=== PATIENT | female | born 1985 | race African-American/Black ===

== ENCOUNTER 2021-04-29 21:51 | Emergency (ER) | payer OTHER ==
[2021-04-29 22:17] LABS: Urine Blood Negative (Negative); Urine Glucose Negative (Negative); Urine Protein Negative (Negative); Urine Specific Gravity 1.025 (1.005-1.030); Urine pH 7.5 (5.0-7.0)
[2021-04-29] MEDS ORDERED: KETOROLAC 30 MG/ML INJ ONE (23:15)
[2021-04-29] MEDS ORDERED: NA CHLORIDE 0.9% 100 ML ONE (23:15)
[2021-04-29] MEDS ORDERED: DIPHENHYDRAMINE 50 MG/ML VIAL ONE (23:15)
[2021-04-29] MEDS ORDERED: METOCLOPRAMIDE 10 MG/2mL INJ ONE (23:15)
[2021-04-29 23:46] LABS: Urine Specific Gravity/Preg 1.025 (1.005-1.030)
[2021-04-29 23:48] LABS: Urine Blood Negative (Negative); Urine Glucose Negative (Negative); Urine Protein Negative (Negative); Urine Specific Gravity 1.025 (1.005-1.030); Urine pH 5.5 (5.0-7.0)
[2021-04-30 00:01] LABS: Absolute Lymphocytes (CBC) 0.7 K/uL (0.7-4.9); Hematocrit 37.4 % (36.0-45.0); Lymphocytes % 15.2 % (15.3-44.8); MPV 8.4 fL (7.6-11.3); RBC Red Blood Cell Count 3.81 M/uL (3.86-4.86)
[2021-04-30 00:07] LABS: ALT/SGPT 170 U/L (12-78); AST/SGOT 56 U/L (15-37); Albumin 4.2 g/dL (3.4-5.0); Alkaline Phosphatase 106 U/L (45-117); BUN Blood Urea Nitrogen 14 mg/dL (7-18); Bicarbonate 29 mmol/L (21-32); Bilirubin Direct 0.2 mg/dL (0-0.2); Bilirubin Total 0.6 mg/dL (0.2-1.0); Glucose Level 134 mg/dL (74-106); Lipase 162 U/L (73-393); Potassium 3.5 mmol/L (3.5-5.1); Protein, Total 8.8 g/dL (6.4-8.2); Sodium Level 139 mmol/L (136-145)
[2021-04-30 00:58] LABS: Urine Bacteria <20 /HPF (<20); Urine RBC NONE SEEN /HPF (NONE SEEN)
--- NOTE | 2021-04-30 01:43 | EDPHYS ---
Physician Documentation [facility] Name: Leatha Jorge Age: 35 yrs Sex: Female : 1985 Arrival Date: 04/29/2021 Time: 21:53 Bed 16 Private MD: ED Physician Aleksandr Ballard HPI: 04/29 22:44 This 35 yrs old Black Female presents to ER via Ambulatory with complaints of Chest pm1 Pain, Abdominal Pain, Blurred Vision, Nausea, High Blood Pressure. 22:44 The patient presents with abdominal pain in the lower abdomen. Onset: The pm1 symptoms/episode began/occurred 3 day(s) ago. The symptoms do not radiate. Associated signs and symptoms: Pertinent positives: chest pain this AM. Headache, Pertinent negatives: nausea, vomiting, and diarrhea, dysuria, fever. Modifying factors: The symptoms are alleviated by nothing, the symptoms are aggravated by nothing. Severity of pain: in the emergency department the pain is unchanged. The patient has not experienced similar symptoms in the past. The patient has been recently seen by a physician: given prescription for metoprolol for her blood pressure. 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 - Social history:: Smoking status: Patient denies any tobacco usage or history of. ROS: 22:44 Skin: Negative for injury, rash, and discoloration. pm1 22:44 Constitutional: Negative for fever, chills, and weight loss, Respiratory: Negative for shortness of breath, cough, wheezing, and pleuritic chest pain, Back: Negative for injury and pain, MS/Extremity: Negative for injury and deformity. 22:44 Abdomen/GI: Positive for abdominal pain, Negative for nausea, vomiting, and diarrhea. 22:44 Neuro: Positive for headache, Negative for numbness, tingling, weakness. 22:44 All other systems are negative. 22:44 Cardiovascular: Positive for chest pain, Negative for edema, orthopnea, palpitations. pm1 Exam: 22:44 Constitutional: This is a well developed, well nourished patient who is awake, alert, pm1 and in no acute distress. Head/Face: Normocephalic, atraumatic. 22:44 Back: No spinal tenderness. No costovertebral tenderness. Full range of motion. Skin: Warm, dry with normal turgor. Normal color with no rashes, no lesions, and no evidence of cellulitis. MS/ Extremity: Pulses equal, no cyanosis. Neurovascular intact. Full, normal range of motion. 22:44 Eyes: Exam is negative for acute changes, Extraocular movements: no acute changes, Conjunctiva: no acute changes, no injection. 22:44 ENT: Exam is negative for acute changes, Mouth: no acute changes, Lips: normal, moist, Oral mucosa: normal, pink and intact, moist. 22:44 Cardiovascular: Exam negative for acute changes, Rate: normal, Rhythm: regular, Pulses: no pulse deficits are appreciated, Heart sounds: normal, normal S1and S2. 22:44 Respiratory: Exam negative for acute changes, respiratory distress, shortness of breath, Breath sounds: are clear throughout. 22:44 Abdomen/GI: Exam negative for acute changes, Inspection: abdomen appears normal, Palpation: abdomen is soft and non-tender, in all quadrants. 22:44 Neuro: Exam negative for acute changes, Orientation: is normal, Mentation: is normal, Motor: is normal, moves all fours. Vital Signs: 22:07 BP 171 / 109; Pulse 81; Resp 16; Temp 98.5(TE); Pulse Ox 100% on R/A; Weight 85.28 kg lp1 (R); Height 5 ft. 10 in. (177.80 cm); Pain 8/10; 22:30 BP 161 / 104; Pulse 79; Resp 19; Pulse Ox 100% on R/A; ll3 23:30 BP 166 / 107; Pulse 79; Resp 17; Pulse Ox 100% on R/A; ll3 04/30 01:03 BP 140 / 81; Pulse 82; Resp 19; Pulse Ox 100% on R/A; ll3 02:07 BP 123 / 92; Pulse 81; Resp 19; Pulse Ox 99% on R/A; ll3 04/29 22:07 Body Mass Index 26.97 (85.28 kg, 177.80 cm) lp1 MDM: 04/29 22:43 Patient medically screened. pm1 22:44 Data reviewed: vital signs. Data interpreted: Pulse oximetry: on room air is 100 %. pm1 Interpretation: normal. Refusal of service: The patient/guardian displays adequate decision making capability and despite a detailed discussion of alternatives, benefits, risks, and consequences refuses: Patient does not want work up for her chest pain because she has been told that it she has chest wall pain. She also does not want a CT head because she attributes the headache to her elevated blood pressure. 04/30 01:35 Counseling: I had a detailed discussion with the patient and/or guardian regarding: the pm1 historical points, exam findings, and any diagnostic results supporting the discharge/admit diagnosis, lab results, radiology results, the need for outpatient follow up, a family practitioner, to return to the emergency department if symptoms worsen or persist or if there are any questions or concerns that arise at home. Special discussion: I discussed with the patient the need to follow-up with the PCP/specialist for the noted incidental finding on X-ray/CT scanning. pulmonary nodules. 04/29 22:16 Order name: Urine Dipstick-Ancillary; Complete Time: 22:32 EDMS 04/29 22:43 Order name: Urine --Ancillary (enter results); Complete Time: 23:49 lp1 04/29 22:46 Order name: Basic Metabolic Panel; Complete Time: 01:01 pm1 04/29 22:46 Order name: CBC with Diff; Complete Time: 01:01 pm1 04/29 22:46 Order name: Hepatic Function; Complete Time: 01:01 pm1 04/29 22:46 Order name: Lipase; Complete Time: 01:01 pm1 04/29 22:46 Order name: Urine Microscopic Only; Complete Time: 01: pm1 04/29 22:46 Order name: CT Abd/Pelvis - IV Contrast Only pm1 04/29 22:50 Order name: COVID-19 SARS RT PCR (Document "Date of Onset" if Symptomatic); Complete pm1 Time: 01:04/29 23:48 Order name: Urine Dipstick-Ancillary; Complete Time: 23:49 EDMS 04/30 01:58 Order name: CREATININE WHOLE BLOOD; Complete Time: 02:02 EDMS 04/29 22:42 Order name: EKG; Complete Time: 22:43 lp1 04/29 22:42 Order name: EKG - Nurse/Tech; Complete Time: 22:42 lp1 04/29 22:46 Order name: IV Saline Lock; Complete Time: 00:22 pm1 04/29 22:46 Order name: Labs collected and sent; Complete Time: 00:22 pm1 Administered Medications: 00:22 Drug: Ketorolac 30 mg Route: IVP; Site: right antecubital; ll3 01:18 Follow up: Response: No adverse reaction ll3 00:22 Drug: Benadryl (diphenhydrAMINE) 25 mg Route: IVP; Site: left antecubital; ll3 01:18 Follow up: Response: No adverse reaction ll3 00:54 Drug: Reglan (metoCLOPramide) 10 mg Route: IVP; Site: right antecubital; ll3 01:18 Follow up: Response: No adverse reaction ll3 Disposition: 02:22 Co-signature as Attending Physician, Aleksandr Ballard MD. [email or web address] Disposition Summary: 04/30/21 01:43 Discharge Ordered Location: Home pm1 Problem: new pm1 Symptoms: have improved pm1 Condition: Stable pm1 Diagnosis - Coronavirus infection, unspecified pm1 - Essential (primary) hypertension pm1 Followup: pm1 - With: Emergency Department - When: As needed - Reason: Worsening of condition Followup: pm1 - With: Private Physician - When: 2 - 3 days - Reason: Recheck today's complaints, Continuance of care, Re-evaluation by your physician Discharge Instructions: - Discharge Summary Sheet pm1 - Hypertension, Adult pm1 - How to Take Your Blood Pressure, [id number] pm1 - DASH Eating Plan pm1 - Managing Your Hypertension pm1 - COVID-19 pm1 - COVID-19 Frequently Asked Questions pm1 - 10 Things You Can Do to Manage Your COVID-19 Symptoms at Home - [facility] [place] pm1 - COVID-19: Quarantine vs. Isolation - [facility] [place] 2] pm1 Forms: - Medication Reconciliation Form pm1 - Thank You Letter pm1 - Antibiotic Education pm1 - Prescription Opioid Use pm1 Signatures: Dispatcher [employer] EDNE Atiya Jessica RN RN 1 Ken Haile NP CARPET FINISHING SUPERVISOR pm1 Aleksandr Ballard MD MD mh7 Nisha Tomas RN RN ll3 Corrections: (The following items were deleted from the chart) 03:30 04/29 22:44 Constitutional: Negative for fever, chills, and weight loss, pm1 Cardiovascular: Negative for chest pain, palpitations, and edema, Respiratory: Negative for shortness of breath, cough, wheezing, and pleuritic chest pain, Back: Negative for injury and pain, MS/Extremity: Negative for injury and deformity, pm1
--- NOTE | 2021-04-30 01:43 | ER ---
Nurse's Notes [facility] Name: Leatha Jorge Age: 35 yrs Sex: Female : 1985 Arrival Date: 04/29/2021 Time: 21:53 Bed 16 Private MD: Diagnosis: Coronavirus infection, unspecified;Essential (primary) hypertension Presentation: 04/29 22:03 Chief complaint: Patient states: Headache, shooting pain in head, reports some chest lp1 pain today, lower abdominal pain x 4 days; Checked BP at work, 200/130. Coronavirus screen: At this time, the client does not indicate any symptoms associated with coronavirus-19. Ebola Screen: No symptoms or risks identified at this time. Risk Assessment: Do you want to hurt yourself or someone else? Patient reports no desire to harm self or others. Note Reports daughter has been running a fever. Onset of symptoms was April 29, 2021. 22:03 Method Of Arrival: Ambulatory lp1 22:03 Acuity: CELESTE 2 lp1 22:07 Initial Sepsis Screen: Does the patient meet any 2 criteria? No. Patient's initial lp1 sepsis screen is negative. Does the patient have a suspected source of infection? No. Patient's initial sepsis screen is negative. 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 - Social history:: Smoking status: Patient denies any tobacco usage or history of. Screenin:07 Abuse screen: Denies threats or abuse. Denies injuries from another. Nutritional lp1 screening: No deficits noted. Tuberculosis screening: No symptoms or risk factors identified. Fall Risk None identified. Assessment: 23:30 General: Appears in no apparent distress. uncomfortable, Behavior is calm, cooperative. ll3 Pain: Complains of pain in abdomen Pain radiates to back Pain currently is 7 out of 10 on a pain scale. Pain began 1 day ago. Is continuous. Neuro: Level of Consciousness is awake, alert, obeys commands, Oriented to person, place, time, situation, Reports headache. Cardiovascular: Patient's skin is warm and dry. Respiratory: Respiratory effort is even, unlabored, Respiratory pattern is regular, symmetrical. GI: Reports lower abdominal pain. : Urine is clear. Derm: Skin is pink, warm \T\ dry. 04/30 00:28 Reassessment: Patient appears in no apparent distress at this time. No changes from ll3 previously documented assessment. Patient and/or family updated on plan of care and expected duration. Pain level reassessed. Patient is alert, oriented x 3, equal unlabored respirations, skin warm/dry/pink. 01:30 Reassessment: Patient appears in no apparent distress at this time. No changes from ll3 previously documented assessment. Patient and/or family updated on plan of care and expected duration. Pain level reassessed. Patient is alert, oriented x 3, equal unlabored respirations, skin warm/dry/pink. Vital Signs: 04/29 22:07 BP 171 / 109; Pulse 81; Resp 16; Temp 98.5(TE); Pulse Ox 100% on R/A; Weight 85.28 kg lp1 (R); Height 5 ft. 10 in. (177.80 cm); Pain 8/10; 22:30 BP 161 / 104; Pulse 79; Resp 19; Pulse Ox 100% on R/A; ll3 23:30 BP 166 / 107; Pulse 79; Resp 17; Pulse Ox 100% on R/A; ll3 04/30 01:03 BP 140 / 81; Pulse 82; Resp 19; Pulse Ox 100% on R/A; ll3 02:07 BP 123 / 92; Pulse 81; Resp 19; Pulse Ox 99% on R/A; ll3 04/29 22:07 Body Mass Index 26.97 (85.28 kg, 177.80 cm) lp1 ED Course: 04/29 21:53 Patient arrived in ED. [email or web address] 22:03 Arm band placed on right wrist. lp1 22:06 Triage completed. lp1 22:09 Patient maintains SpO2 saturation greater than 95% on room air. lp1 22:26 Ken Haile NP is PHCP. pm1 22:26 Aleksandr Ballard MD is Attending Physician. pm1 04/30 00:01 Missed attempt(s): 22 gauge in left antecubital area. Bleeding controlled, band aid ll3 applied, catheter tip intact. 00:01 Missed attempt(s): 22 gauge in right antecubital area. Bleeding controlled, band aid ll3 applied, catheter tip intact. 00:17 Missed attempt(s): 20 gauge in right antecubital area. Bleeding controlled, band aid bb applied, catheter tip intact. Inserted saline lock: 20 gauge in right antecubital area, using aseptic technique. 00:22 Nisha Tomas RN is Primary Nurse. ll3 00:28 No provider procedures requiring assistance completed. ll3 00:29 Patient has correct armband on for positive identification. Placed in gown. Bed in low ll3 position. Call light in reach. Side rails up X 1. coding technician on. Pulse ox on. NIBP on. 00:47 CT Abd/Pelvis - IV Contrast Only In Process Unspecified. EDMS 02:07 IV discontinued, intact, bleeding controlled, No redness/swelling at site. Pressure ll3 dressing applied. Administered Medications: 00:22 Drug: Ketorolac 30 mg Route: IVP; Site: right antecubital; ll3 01:18 Follow up: Response: No adverse reaction ll3 00:22 Drug: Benadryl (diphenhydrAMINE) 25 mg Route: IVP; Site: left antecubital; ll3 01:18 Follow up: Response: No adverse reaction ll3 00:54 Drug: Reglan (metoCLOPramide) 10 mg Route: IVP; Site: right antecubital; ll3 01:18 Follow up: Response: No adverse reaction ll3 Outcome: 01:43 Discharge ordered by . pm1 02:07 Discharged to home ambulatory. ll3 02:07 Condition: stable 02:07 Discharge instructions given to patient, Instructed on discharge instructions, follow up and referral plans. Demonstrated understanding of instructions, follow-up care. 02:08 Patient left the ED. ll3 Signatures: Dispatcher [employer] EDMS Magui Kolb RN RN bb Pena, Laura, RN RN lp1 Ken Haile, PATIENT COMPANION PATIENT COMPANION pm1 Nisha Tomas RN RN ll3 Herlinda [email or web address] Corrections: (The following items were deleted from the chart) 04/29 22:09 22:03 Chief complaint: Patient states: Headache, shooting pain in head, reports some lp1 chest pain, lower abdominal pain; Checked BP at work, 200/130 lp1 : 22:03 Acuity: CELESTE 3 lp1 lp1 04/30 00: 00:23 General: Appears in no apparent distress. uncomfortable, Behavior is calm, ll3 cooperative, ll3 : 00:23 Pain: Complains of pain in abdomen Pain radiates to back Pain currently is 7 out ll3 of 10 on a pain scale. Pain began 1 day ago. Is continuous, ll3 : 00:23 Neuro: Level of Consciousness is awake, alert, obeys commands, Oriented to ll3 person, place, time, situation, Reports headache ll3 : 00:23 Cardiovascular: Patient's skin is warm and dry. ll3 ll3 : 00:23 Respiratory: Respiratory effort is even, unlabored, Respiratory pattern is ll3 regular, symmetrical, ll3 : 00:23 GI: Reports lower abdominal pain, ll3 ll3 : 00:23 : Urine is clear, ll3 ll3 : 00:23 Derm: Skin is pink, warm \T\ dry. ll3 ll3
[2021-04-30 02:16] VITALS: TEMP 98.5
[2021-04-30 02:23] VITALS: BP 123/92; O2SAT 99
--- NOTE | 2021-04-30 12:52 | RAD REPORT ---
EXAM DESCRIPTION: CT Abdomen and Pelvis With Intravenous Contrast CLINICAL HISTORY: ABD PAIN TECHNIQUE: Axial computed tomography images of the abdomen and pelvis with intravenous contrast. S agittal and coronal reformatted images were created and reviewed. This CT exam was performed using one or more of the following dose reduction techniques: automated exposure control, adjustment of t he mA and/or kV according to patient size, and/or use of iterative reconstruction technique. COMPARISON: No relevant prior studies available. FINDINGS: Lung bases: Multiple nodules with groundglass halos in the lungs bilaterally. An index l eft lower lobe nodule measures 11 mm (series 401 image 9). ABDOMEN: Liver: Unremarkable. No mass. Gallbladder and bile ducts: The gallbladder is contracted. No calcified stones. No ductal dilat ion. Pancreas: Unremarkable. No mass. No ductal dilation. Spleen: Unremarkable. No splenomegaly. Adrenals: Unremarkable. No mass. Kidneys and ureters: Unremarkable. No solid mass. No hydronephrosis. Stomach and bowel: Moderate stool. No bowel obstruction. No appreciable mucosal thickening. PELVIS: Appendix: Normal caliber appendix. No findings to suggest acute appendicitis. Bladder: Mild circumferential urinary bladder wall thickening. Reproductive: There is a 2.3 x 1.5 x 2.1 cm left ovarian cyst. The uterus and right ovary are unrem arkable as visualized. ABDOMEN and PELVIS: Intraperitoneal space: Small amount of free fluid within the pelvis. No free air. Bones/joints: Mild multilevel spondylosis. No acute fracture. No dislocation. Soft tissues: Unremarkable. Vasculature: Unremarkable. No abdominal aortic aneurysm. Lymph nodes: Unremarkable. No enlarged lymph nodes. IMPRESSION: 1. Moderate stool. No bowel obstruction. 2. Mild circumferential urinary bladder wall thickening. Please correlate clinically for cystitis. 3. 2.3 cm left ovarian cyst. No follow-up imaging is recommended. Reference: JACR 2019;17(2):97 4-254 4. Multiple pulmonary nodules bilaterally. These may be infectious or inflammatory in etiology. Fol low-up is recommended in order to exclude underlying malignancy. 5. Other findings as above. Electronically signed by: Que Arboleda MD 04/30/2021 1:10 AM HEEL SPLITTER Due to temporary technical issues with the PACS/Fluency reporting system, reports are being signed by the in house radiologists without review as a courtesy to insure prompt reporting. The interpreting radiologist is fully responsible for the content of the report.
== END 2021-04-30 02:08 | disposition home or self-care (01) ==
LOC: ER 21:51
DX: U07.1 COVID-19 (principal); I10 Essential (primary) hypertension
CPT/HCPCS: 93005; 85025; 80048; 36415; 81025; 82565; 80076; 83690; 74177; 99285; U0003; Q9967; J2765; J1200; 81003; 81015

== ENCOUNTER 2023-02-06 13:21 | Emergency (ER) | payer OTHER ==
--- OUTSIDE RECORDS SUMMARY | 2023-02-06 13:25 | XMS REPORT | Continuity of Care Document ---
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 [id number] Mari 14:45:00 14:45:00 COLLEEN Seyb old 2022-03-19 2022-03-20 Emergency [facility] ERT [id number] Univers 21:10:00 01:47:00 WILY arellano [facility] 2022-03-19 2022-03-20 Emergency [facility] [id number] Univers 21:10:00 01:47:00 Wily Rodriguez [place] 350.1.13.10 ity [facility] 4.2.7.2.686 [facility] [id number] [address] 2022-03-04 2022-03-04 Outpatient MARI RENO [id number] Mari 00:00:00 00:00:00 Seybol d 2022-02-20 2022-02-20 Outpatient PREZASMARI [id number] Mari 13:30:00 13:30:00 PHILLY Seybol d 2022-02-07 2022-02-07 Outpatient PREZASMARI [id number] Mari 00:00:00 00:00:00 PHILLY Seybol d 2022-02-04 2022-02-04 Outpatient COLTMARI MAHARAJ [id number] Mari 15:30:00 15:30:00 JORGE Seybol d 2022-01-31 2022-01-31 Outpatient MARI GREGORY [id number] Mari 15:00:00 15:00:00 JORGE Seybol d 2022-01-31 2022-01-31 Outpatient MARI RENO [id number] Mari 14:55:00 14:55:00 Seybol d 2022-01-30 2022-01-30 Outpatient COLT, MARI RENO [id number] Mari 00:00:00 00:00:00 JORGE Seybol d 2022-01-28 2022-01-28 Outpatient COLT, MARI RENO [id number] Mari 15:30:00 15:30:00 JORGE Seybol d 2022-01-23 2022-01-23 Outpatient PREZAS, MARI RENO [id number] Mari 00:00:00 00:00:00 PHILLY Seybol d 2022-01-20 2022-01-20 Outpatient PREZAS, MARI RENO [id number] Mari 00:00:00 00:00:00 PHILLY Seybol d 2022-01-18 2022-01-18 Outpatient LAB90 MARI RENO [id number] Mari 12:10:00 12:10:00 Seybol d 2022-01-18 2022-01-18 Outpatient PREZAS, MARI RENO [id number] Mari 00:00:00 00:00:00 PHILLY Seybol d 2022-01-18 2022-01-18 Outpatient PREZAS, MARI RENO [id number] Mari 00:00:00 00:00:00 PHILLY Seybol d 2022-01-16 2022-01-16 Outpatient PREZAS, MARI RENO [id number] Mari 00:00:00 00:00:00 PHILLY Seybol d 2022-01-16 2022-01-16 Outpatient PREZAS, MARI RENO [id number] Mari 00:00:00 00:00:00 PHILLY Seybol d 2022-01-11 2022-01-11 Outpatient PREZAS, MARI RENO [id number] Mari 14:45:00 14:45:00 PHILLY Seybol d 2022-01-07 2022-01-07 Outpatient COLT, MARI RENO [id number] Mari 13:00:00 13:00:00 JORGE Seybol d 2022-01-06 2022-01-06 Emergency [place], [facility] [id number] [place] 00:00:00 00:00:00 NEERU [address] 2022-01-04 2022-01-04 Outpatient MARI MIRAMONTES [id number] Mari 00:00:00 00:00:00 PHILLY Seybol d 2021-12-28 2021-12-28 Outpatient JUAN RAMON LIGHT [id number] Mari 14:00:00 14:00:00 Seybol d 2021-12-28 2021-12-28 Outpatient MAHAJAN, MARI RENO [id number] Mari 00:00:00 00:00:00 LEIGH ANN Seybol d 2021-12-28 2021-12-28 Outpatient PREMARI LIVINGSTON [id number] Mari 00:00:00 00:00:00 PHILLY Seybol d 2021-12-28 2021-12-28 Outpatient MARI ROSE [id number] Mari 00:00:00 00:00:00 GIOVANNI Seybol d 2021-12-24 2021-12-24 Outpatient PREMARI LIV[place] [id number] Mari 00:00:00 00:00:00 PHILLY Seybol d 2021-12-21 2021-12-21 Outpatient PREMARI LIV[place]ON [id number] Mari 00:00:00 00:00:00 PHILLY Seybol d 2021-12-19 2021-12-19 Outpatient PREZASMARI [id number] Mari 15:30:00 15:30:00 PHILLY Seybol d 2021-10-18 2021-10-18 Office PAUL STANLEY 1.2.840.114 [id number] Mari 14:45:00 14:45:00 Visit [facility] 350.1.13.13 ybold 1.2.7.2.686 [id number] 2021-10-18 2021-10-18 Outpatient MARI MIRAMONTES [id number] Mari 00:00:00 00:00:00 PHILLY Seybol d 2021-10-12 2021-10-12 Office PREZAS, [place] 1.2.840.114 [id number] Mari 16:30:00 16:30:00 Visit PHILLY Dowell 350.1.13.13 Se ybold 1.2.7.2.686 [id number] 2021-10-12 2021-10-12 Office Hcw39, [facility] [id number] [id number] Mari 15:30:00 16:00:00 Visit [place] 350.1.13.13 Se ybold 1.2.7.2.686 [id number] 2021-10-12 2021-10-12 Outpatient MARI RENO [id number] Mari 15:50:00 15:50:00 Seybol d 2021-10-12 2021-10-12 Outpatient HCW39, MARI RENO [id number] Mari 14:30:00 14:30:00 Seybol d 2021-10-12 2021-10-12 Outpatient PREZAS, MARI RENO [id number] Mari 00:00:00 00:00:00 PHILLY Seybol d 2021-10-12 2021-10-12 Outpatient PREZAS, MARI RENO [id number] Mari 00:00:00 00:00:00 PHILLY Seybol d 2021-10-12 2021-10-12 Outpatient PREZAS, MARI RENO [id number] Mari 00:00:00 00:00:00 PHILLY Seybol d 2021-08-03 2021-08-03 Outpatient PREZASMARI [id number] Mari 16:15:00 16:15:00 PHILLY Seybol d 2021-08-03 2021-08-03 Outpatient PREZASMARI [id number] Mari 00:00:00 00:00:00 PHILLY Seybol d 2021-08-03 2021-08-03 Outpatient PREZASMARI [id number] Mari 00:00:00 00:00:00 PHILLY Seybol d 2021-07-26 2021-07-26 Outpatient PREZALazara MARI RENO [id number] Mari 16:15:00 16:15:00 PHILLY Seybol d 2021-07-20 2021-07-20 Outpatient OKORADOT, MARI RENO [id number] Mari 15:45:00 15:45:00 KERRY Seybol d 2021-07-19 2021-07-19 Outpatient OKORADOT, MARI RENO [id number] Mari 15:30:00 15:30:00 KERRY Seybol d 2021-07-19 2021-07-19 Office Juan Ramon Miramontes 1.2.840.114 [id number] Mari 15:15:00 15:30:00 Visit Philly Delmer 350.1.13.13 Se [place] 1.2.7.2.686 [id number] 2021-07-18 2021-07-18 Emergency X [facility] ERT [id number] Univers 01:18:00 04:48:00 [facility] 2021-07-18 Emergency [facility] [id number] Univers 01:18:00 04:48:00 Anna [facility].13.10 [facility] 4.2.7.2.686 [facility] [id number] [address] 2021-06-19 2021-06-19 Outpatient TESTING, QUANG RENO [id number] Mari 11:25:00 11:25:00 Seybol d 2021-06-05 2021-06-05 Outpatient TESTING, QUANG RENO [id number] Mari 11:25:00 11:25:00 Seybol d 2021-05-22 2021-05-22 Outpatient TESTING, QUANG RENO [id number] Mari 11:25:00 11:25:00 Seybol d 2021-05-18 2021-05-18 Outpatient OKORADOT, MARI RENO [id number] Mari 00:00:00 00:00:00 KERRY Seybol d 2021-05-09 2021-05-09 Outpatient OKORAFOR, MARI RENO [id number] Mari 09:00:00 09:00:00 KERRY Seybol d 2021-05-09 2021-05-09 Outpatient LAB90 MARI RENO [id number] Mari 09:00:00 09:00:00 Seybol d 2021-05-08 2021-05-08 Outpatient TESTING, QUANG RENO [id number] Mari 11:25:00 11:25:00 Seybol d 2021-05-04 2021-05-04 Outpatient OKORAFOR, MARI RENO [id number] Mari 00:00:00 00:00:00 KERRY Seybol d 2021-05-01 2021-05-01 Telemedici Alexander, ASHLEY 1.2.840.114 [id number] Mari 14:00:00 14:10:03 ne Kerry [place] 350.1.13.13 Seybold 1.2.7.2.686 [id number] 2021-05-01 2021-05-01 Outpatient OKORAFOR, MARI RENO [id number] Mari 13:45:00 13:45:00 KERRY Seybol d 2021-04-24 2021-04-24 Outpatient TESTING, QUANG RENO [id number] Mari 11:25:00 11:25:00 Seybol d 2021-04-10 2021-04-10 Outpatient TESTING, QUANG RENO [id number] Mari 11:25:00 11:25:00 Seybol d 2021-03-27 2021-03-27 Outpatient TESTING, QUANG RENO [id number] Mari 11:25:00 11:25:00 Seybol d 2021-03-13 2021-03-13 Outpatient TESTING, QUANG RENO [id number] Mari 11:25:00 11:25:00 Seybol d 2021-02-27 2021-02-27 Outpatient TESTING, QUANG RENO [id number] Mari 11:25:00 11:25:00 Seybol d 2021-02-27 2021-02-27 Outpatient ROSE, MARI RENO [id number] Mari 00:00:00 00:00:00 GIOVANNI Seybol d 2021-02-16 2021-02-16 Outpatient MILTON MARI RENO [id number] Mari 00:00:00 00:00:00 GIOVANNI Seybol d 2021-02-16 2021-02-16 Outpatient MILTON MARI RENO [id number] Mari 00:00:00 00:00:00 GIOVANNI Seybol d 2021-02-07 2021-02-07 Outpatient JUAN RAMON LIGHT MARI RENO [id number] Mari 13:30:00 13:30:00 Seybol d 2021-02-07 2021-02-07 Outpatient MILTON MARI RENO [id number] Mari 00:00:00 00:00:00 GIOVANNI Seybol d 2021-02-06 2021-02-06 Outpatient MILTON MARI RENO [id number] Mari 00:00:00 00:00:00 GIOVANNI Seybol d Results Test Description Test Time Test Comments Results Result Comments Source [facility] 2022-03-20 04:48:47 Test Item Value Reference Range Interpretation Comme nts BETA HCG (test code = See_Comment [Auto mated message] The [id number]) system which ge nerated this result transmit evelyn reference range : Non- fe male and male patients: <5 mIU/mL. The reference r carrington was not used to interpr et this result as rory l/abnormal. ISABEL (test code = ISABEL) Gestational Age ?Range (mIU/mL) 1-10 ?Weeks ?27-96556498-17 Weeks ?00223-01347998-08 Weeks ?9113-21568594-00 Weeks ?3464-075574 Biotin has been reported to cause a negative bias, interpret results relative to patient's use of biotin. [facility] [id number] 04:07:46 Test Item Value Reference Interpretation Comments Range TROPONIN I (test 0.002 ng/mL See_Comment [Automated code = 1187957190) message] The system which generated this result transmitted reference range : <=0.034. The reference range was not used to interpret this result as normal/abnormal . ISABEL (test code = Reference (Normal) ISABEL) Range (defined by the 99th percentile reference limit): <= 0.034 ng/mL Note: Cardiac troponin begins to rise 3-4 hours after the onset of ischemia. Repeat in 4-6 hours if the sample was drawn within 3-4 hours of the onset of the symptom and found normal. Diagnosis of myocardial injury is made with acute changes in cTn concentrations with at least one serial sample above the 99th percentile upper reference limit (URL), taken together with the patient's clinical presentation. Biotin has been reported to cause a negative bias, interpret results relative to patient's use of biotin. Lab Interpretation Normal (test code = 80457-4) [id number] 04:04:26 Test Item Value Reference Range Interpretation Comments NT-proBNP (test code 53 pg/mL See_Comment [Autom ated = 7921264662) message] The system which generated this result transmitted reference range : <=125. The reference range was not used to interpret this result as normal/abnormal . ISABEL (test code = ISABEL) Biotin has been reported to cause a negative bias, interpret results relative to patient's use of biotin. Lab Interpretation Normal (test code = 78387-2) [facility] ([id number][facility]2022-[facility]-20 03:55:25 Test Item Value Reference Range Interpretation Comments NA (test code = 138 mmol/L 135-145 5406737173) K (test code = 3.9 mmol/L 3.5-5.0 5643436468) CL (test code = 104 mmol/L 98-108 1968853352) CO2 TOTAL (test code = 26 mmol/L 23-31 4963131000) AGAP (test code = 2-16 4319779660) BUN (test code = 13 mg/dL 7-23 1083285712) GLUCOSE (test code = 186 mg/dL 70-110 H 4980847032) CREATININE (test code = 0.59 mg/dL 0.50-1.04 8693650843) TOTAL BILI (test code = 0.4 mg/dL 0.1-1.0 0886785057) CALCIUM (test code = 8.8 mg/dL 8.6-10.6 4459571338) T PROTEIN (test code = 7.0 g/dL 6.3-8.2 0391223028) ALBUMIN (test code = 4.2 g/dL 3.5-5.0 4459085034) ALK PHOS (test code = 109 U/L 34-122 0453541576) ALTv (test code = 18 U/L 5-35 1742-6) AST(SGOT) (test code = 19 U/L 13-40 2073518951) eGFR (test code = mL/min/1.73m2 8877136936) ISABEL (test code = ISABEL) Association of Glomerular Filtration Rate (GFR) and Staging of Kidney Disease* + --+ --+ ------+| GFR (mL/min/1.73 m2) ?| With Kidney Damage ?| ?Without Kidney Damage+ --------+ --------+ +| ?>90 ?| ?Stage one ?| ? Normal ?+ ---+ ---+ -------+| ?60-89 ?| ?Stage two ?| ? Decreased GFR ? + --+ --+ ------+| ?30-59 ?| ?Stage three ?| ? Stage three ? + --+ --+ ------+| ?15-29 ?| ?Stage four ? | ? Stage four ?+ ---+ ---+ -------+| ?<15 (or dialysis) ? ?| ?Stage five ? | ? Stage five ?+ ---+ ---+ -------+ *Each stage assumes the associated GFR level has been in effect for at least three months. ?Stages 1 to 5, with or without kidney disease, indicate chronic kidney disease. Notes: Determination of stages one and two (with eGFR >59mL/min/1.73 m2) requires estimation of kidney damage for at least three months as defined by structural or functional abnormalities of the kidney, manifested by either:Pathological abnormalities or Markers of kidney damage (including abnormalities in the composition of the blood or urine or abnormalities in imaging tests). Lab Interpretation Abnormal (test code = 26910-9) [facility] 03:55:25 Test Item Value Reference Range Interpretation Comments LIPASE (test code = 8904236593) 151 U/L 0-220 Lab Interpretation (test code = Normal 66064-5) [facility] WITH [id number] 03:46:22 Test Item Value Reference Range Interpretation Comments WBC (test code = See_Comment [Automated 6690-2) message] The sy stem which generated this result transmitted reference range : 4.30 - 11.10 10*3/?L. The reference range was not used to interpret this result as normal/abnormal . RBC (test code = See_Comment L [Automated 789-8) message] The sy stem which generated this result transmitted reference range : 3.93 - 5.25 10*6/?L. The reference range was not used to interpret this result as normal/abnormal . HGB (test code = 11.3 g/dL 11.6-15.0 L 718-7) HCT (test code = 33.6 % 35.7-45.2 L 4544-3) MCV (test code = 98.0 fL 80.6-95.5 H 787-2) MCH (test code = 32.9 pg 25.9-32.8 H 785-6) MCHC (test code = 33.6 g/dL 31.6-35.1 786-4) RDW-SD (test code = 44.2 fL 39.0-49.9 85589-0) RDW-CV (test code = 12.3 % 12.0-15.5 788-0) PLT (test code = See_Comment [Automated 777-3) message] The sy stem which generated this result transmitted reference range : 166 - 358 10*3/ ?L. The reference r carrington was not used to interpret this result as normal/abnormal . MPV (test code = 9.7 fL 9.5-12.9 38244-4) NRBC/100 WBC (test See_Comment [Automat ed code = 8549795606) message] The system which generated this result transmitted reference range : 0.0 - 10.0 /100 WBCs. The refer ence range was not u sed to interpret th is result as normal/abnormal . NRBC x10^3 (test code See_Comment [Auto mated = 4023925538) message] The s ystem which generated this result transmitted reference range : 10*3/?L. The reference range was not used to interpret this result as normal/abnormal . GRAN MAT (NEUT) % 55.3 % (test code = 770-8) IMM GRAN % (test code 0.30 % = 2363028529) LYMPH % (test code = 34.5 % 736-9) MONO % (test code = 7.9 % 5905-5) EOS % (test code = 1.2 % 713-8) BASO % (test code = 0.8 % 706-2) GRAN MAT x10^3(ANC) 3.35 10*3/uL 1.88-7.09 (test code = 9521466113) IMM GRAN x10^3 (test 0.00-0.06 code = 3303025340) LYMPH x10^3 (test code 2.09 10*3/uL 1.32-3.29 = 731-0) MONO x10^3 (test code 0.48 10*3/uL 0.33-0.92 = 742-7) EOS x10^3 (test code = 0.07 10*3/uL 0.03-0.39 711-2) BASO x10^3 (test code 0.05 10*3/uL 0.01-0.07 = 704-7) Lab Interpretation Abnormal (test code = 39279-3) [facility] [id number] 03:27:00 Test Item Value Reference Range Interpretation Comments POCT PREG (test code = 1605) positive On board controls acceptable with positive C Line (test code = 3574) POCT PREG LOT # (test code = 3575) [id number] POCT PREG TEST DATE (test 06/29/2023 code = 3576) Lab Interpretation (test code = Normal 41455-4) [facility] [id number] 07:15:33 Test Item Value Reference Interpretation Comments Range TROPONIN I (test 0.003 ng/mL See_Comment [Automated code = 8665361141) message] The system which generated this result transmitted reference range : <=0.034. The reference range was not used to interpret this result as normal/abnormal . ISABEL (test code = Reference (Normal) ISABEL) Range (defined by the 99th percentile reference limit): <= 0.034 ng/mL Note: Cardiac troponin begins to rise 3-4 hours after the onset of ischemia. Repeat in 4-6 hours if the sample was drawn within 3-4 hours of the onset of the symptom and found normal. Diagnosis of myocardial injury is made with acute changes in cTn concentrations with at least one serial sample above the 99th percentile upper reference limit (URL), taken together with the patient's clinical presentation. Biotin has been reported to cause a negative bias, interpret results relative to patient's use of biotin. Lab Interpretation Normal (test code = 13967-6) [facility]. METABOLIC PANEL ([id number])2021-07-18 07:04:35 Test Item Value Reference Range Interpretation Comments NA (test code = 141 mmol/L 135-145 8502000291) K (test code = 4.0 mmol/L 3.5-5.0 3174595717) CL (test code = 101 mmol/L 98-108 9059660519) CO2 TOTAL (test code = 30 mmol/L 23-31 0057713819) AGAP (test code = 2-16 1349286476) BUN (test code = 14 mg/dL 7-23 2986961836) GLUCOSE (test code = 146 mg/dL 70-110 H 2285084913) CREATININE (test code = 0.62 mg/dL 0.50-1.04 2229995066) TOTAL BILI (test code = 0.9 mg/dL 0.1-1.3 0733783788) CALCIUM (test code = 9.1 mg/dL 8.6-10.6 3943264091) T PROTEIN (test code = 7.8 g/dL 6.3-8.2 2691091234) ALBUMIN (test code = 4.7 g/dL 3.5-5.0 5806431389) ALK PHOS (test code = 110 U/L 34-122 8620824514) ALTv (test code = 18 U/L 5-35 1742-6) AST(SGOT) (test code = 29 U/L 13-40 6535368598) eGFR (test code = mL/min/1.73m2 0792023427) ISABEL (test code = ISABEL) Association of Glomerular Filtration Rate (GFR) and Staging of Kidney Disease* + --+ --+ ------+| GFR (mL/min/1.73 m2) ?| With Kidney Damage ?| ?Without Kidney Damage+ --------+ --------+ +| ?>90 ?| ?Stage one ?| ? Normal ?+ ---+ ---+ -------+| ?60-89 ?| ?Stage two ?| ? Decreased GFR ? + --+ --+ ------+| ?30-59 ?| ?Stage three ?| ? Stage three ? + --+ --+ ------+| ?15-29 ?| ?Stage four ? | ? Stage four ?+ ---+ ---+ -------+| ?<15 (or dialysis) ? ?| ?Stage five ? | ? Stage five ?+ ---+ ---+ -------+ *Each stage assumes the associated GFR level has been in effect for at least three months. ?Stages 1 to 5, with or without kidney disease, indicate chronic kidney disease. Notes: Determination of stages one and two (with eGFR >59mL/min/1.73 m2) requires estimation of kidney damage for at least three months as defined by structural or functional abnormalities of the kidney, manifested by either:Pathological abnormalities or Markers of kidney damage (including abnormalities in the composition of the blood or urine or abnormalities in imaging tests). Lab Interpretation Abnormal (test code = 39473-5) [facility], [id number] 07:03:54 Test Item Value Reference Range Interpretation Comments LIPASE (test code = 3081103474) 102 U/L 0-220 Lab Interpretation (test code = Normal 03685-9) [facility]2022-[facility]-20 07:02:14 Test Item Value Reference Range Interpretation Comments APTT Patient (test See_Comment [Automat ed code = 3173-2) message] The system which generated this result transmitted reference range : 23 - 38 Seconds . The reference range was not used to interpr et this result as normal/abnormal . ISABEL (test code = ISABEL) The [facility] patient population mean normal value for aPTT is 30 seconds. Lab Interpretation Normal (test code = 94183-8) [facility] TylerPROTHROMBIN [facility] / [id number] 07:00:13 Test Item Value Reference Range Interpretation Comments PROTIME PATIENT (test See_Comment [Auto mated message] code = 5964-2) The system wh ich generated this result transmitted ref erence range: 12.0 - 1 4.7 Seconds. The re ference range was not u sed to interpret this result as normal/abnor mal. INR (test code = 6301-6) Nor mal INR <1.1; Warfarin Therap eutic range 2.0 to 3. 0 or 2.5 to 3.5, dep ending upon the indica tions. Lab Interpretation (test Normal code = 59370-8) [facility] WITH [id number] 06:51:31 Test Item Value Reference Range Interpretation Comments WBC (test code = See_Comment [Automated 1590-2) message] The sy stem which generated this result transmitted reference range : 4.30 - 11.10 10*3/?L. The reference range was not used to interpret this result as normal/abnormal . RBC (test code = See_Comment L [Automated 789-8) message] The sy stem which generated this result transmitted reference range : 3.93 - 5.25 10*6/?L. The reference range was not used to interpret this result as normal/abnormal . HGB (test code = 13.0 g/dL 11.6-15.0 718-7) HCT (test code = 39.1 % 35.7-45.2 4544-3) MCV (test code = 100.0 fL 80.6-95.5 H 787-2) MCH (test code = 33.2 pg 25.9-32.8 H 785-6) MCHC (test code = 33.2 g/dL 31.6-35.1 786-4) RDW-SD (test code = 43.7 fL 39.0-49.9 61668-1) RDW-CV (test code = 12.0 % 12.0-15.5 788-0) PLT (test code = See_Comment [Automated 777-3) message] The sy stem which generated this result transmitted reference range : 166 - 358 10*3/ ?L. The reference r carrington was not used to interpret this result as normal/abnormal . MPV (test code = 9.8 fL 9.5-12.9 67949-8) NRBC/100 WBC (test See_Comment [Automat ed code = 6569466051) message] The system which generated this result transmitted reference range : 0.0 - 10.0 /100 WBCs. The refer ence range was not u sed to interpret th is result as normal/abnormal . NRBC x10^3 (test code <0.01 See_Comment [Auto mated = 7299257424) message] The s ystem which generated this result transmitted reference range : 10*3/?L. The reference range was not used to interpret this result as normal/abnormal . GRAN MAT (NEUT) % 55.3 % (test code = 770-8) IMM GRAN % (test code 0.20 % = 6532357166) LYMPH % (test code = 35.1 % 736-9) MONO % (test code = 7.1 % 5905-5) EOS % (test code = 1.3 % 713-8) BASO % (test code = 1.0 % 706-2) GRAN MAT x10^3(ANC) 2.65 10*3/uL 1.88-7.09 (test code = 7410932744) IMM GRAN x10^3 (test <0.03 0.00-0.06 code = 7146018007) LYMPH x10^3 (test code 1.68 10*3/uL 1.32-3.29 = 731-0) MONO x10^3 (test code 0.34 10*3/uL 0.33-0.92 = 742-7) EOS x10^3 (test code = 0.06 10*3/uL 0.03-0.39 711-2) BASO x10^3 (test code 0.05 10*3/uL 0.01-0.07 = 704-7) Lab Interpretation Abnormal (test code = 38523-4) [facility] [id number] 06:43:00 Test Item Value Reference Range Interpretation Comments POCT PREG (test code = 1605) negative On board controls acceptable with present C Line (test code = 3574) POCT PREG LOT # (test code = 3575) [id number] POCT PREG TEST DATE (test code = 3576) Lab Interpretation (test code = Normal 02296-0) [facility] [place]"
[2023-02-06 14:47] LABS: Absolute Lymphocytes (CBC) 1.8 K/uL (0.7-4.9); Lymphocytes % 34.4 % (15.3-44.8); MCV 97.8 fL (80-100); MPV 7.6 fL (7.6-11.3); Platelets 280 thou/uL (152-406); RBC Red Blood Cell Count 3.78 M/uL (3.86-4.86)
[2023-02-06 15:04] LABS: ALT/SGPT 27 U/L (13-56); AST/SGOT 14 U/L (15-37); Alkaline Phosphatase 77 U/L (45-117); BUN Blood Urea Nitrogen 20 mg/dL (7-18); Bicarbonate 26 mEq/L (21-32); Bilirubin Direct 0.3 mg/dL (0-0.2); Bilirubin Indirect, Calculated 0.7 mg/dL (0.2-0.8); Glomerular Filtration Rate 78 ml/min (=/>90); Glucose Level 96 mg/dL (74-106); Magnesium 2.5 mg/dL (1.6-2.4); Potassium 3.7 mEq/L (3.5-5.1); Protein, Total 8.8 g/dL (6.4-8.2); Sodium Level 137 mEq/L (136-145)
[2023-02-06 15:07] LABS: Troponin High Sensitivity < 3.0 pg/mL (<58.9)
--- NOTE | 2023-02-06 16:17 | RAD REPORT ---
EXAM DESCRIPTION: RAD - Chest Pa And Lat (2 Views) - 02/06/2023 3:01 pm CLINICAL HISTORY: CHEST PAIN COMPARISON: No comparisons TECHNIQUE: PA and lateral views of the chest were obtained. FINDINGS: The lungs are clear. Heart size is normal and central vasculature is within normal limits. No pleural effusion or pneumothorax seen. No acute bony finding noted. IMPRESSION: No acute cardiopulmonary process.
[2023-02-06] MEDS ORDERED: KETOROLAC 30 MG/ML INJ ONE (16:18)
[2023-02-06] MEDS ORDERED: ONDANSETRON 4 MG/2 ML VIAL ONE (16:18)
--- NOTE | 2023-02-06 16:31 | EDPHYS ---
Physician Documentation [facility] Name: Leatha Jorge Age: 37 yrs Sex: Female : 1985 Arrival Date: 02/06/2023 Time: 13:21 Bed 12 Private MD: ED Physician Royce Miller HPI: 02/06 14:17 This 37 yrs old Black Female presents to ER via Ambulatory with complaints of Chest ms3 Pain. 14:17 37-year-old female with past medical history of hypertension presents to the emergency ms3 department for chest pain that was tearing and radiating to her left shoulder. Patient rated the pain 8/10. Patient endorses nausea. Patient denies fevers, chills, cough. Historical: - Allergies: 13:33 No Known Allergies; kd3 - Home Meds: 13:34 carvedilol oral [Active]; Hydrochlorothiazide Oral [Active]; amlodipine oral [Active]; kd3 topiramate oral [Active]; - PMHx: 13:33 Hypertensive disorder; kd3 - PSHx: 13:33 section; kd3 - Immunization history:: Adult Immunizations up to date. - Social history:: Smoking status: Patient denies any tobacco usage or history of. ROS: 14:17 Constitutional: Negative for fever, and chills. Neck: Negative for injury, pain, and ms3 swelling, Respiratory: Negative for shortness of breath, cough, wheezing, and pleuritic chest pain, Abdomen/GI: Negative for abdominal pain, nausea, vomiting, diarrhea, and constipation, 14:17 MS/Extremity: Negative for injury and deformity, Skin: Negative for injury, rash, and discoloration, 14:17 Cardiovascular: Positive for chest pain, 14:17 All other systems are negative, Exam: 14:17 Constitutional: This is a well developed, well nourished patient who is awake, alert, ms3 and in no acute distress. Head/Face: Normocephalic, atraumatic. Neck: Trachea midline, no cervical lymphadenopathy. Supple, full range of motion without nuchal rigidity, or vertebral point tenderness. No Meningismus. Chest/axilla: Normal chest wall appearance and motion. Nontender with no deformity. Cardiovascular: Regular rate and rhythm with a normal S1 and S2. No gallops, murmurs, or rubs. Normal PMI, no JVD. No pulse deficits. Respiratory: Lungs have equal breath sounds bilaterally, clear to auscultation and percussion. No rales, rhonchi or wheezes noted. No increased work of breathing, no retractions or nasal flaring. Abdomen/GI: Soft, non-tender, with normal bowel sounds. No distension or tympany. No guarding or rebound. No evidence of tenderness throughout. Skin: Warm, dry with normal turgor. Normal color with no rashes, no lesions, and no evidence of cellulitis. MS/ Extremity: Pulses equal, no cyanosis. Neurovascular intact. Full, normal range of motion. 21:41 ECG was reviewed by the Attending Physician. ms3 Vital Signs: 13:32 BP 133 / 100; Pulse 78; Resp 19; Temp 98.4(TE); Pulse Ox 100% ; Weight 92.08 kg; Height kd3 5 ft. 10 in. ; 13:37 BP 134 / 96 RA; kd3 13:37 BP 134 / 93 LA; kd3 13:32 Body Mass Index 29.13 (92.08 kg, 177.8 cm) kd3 MDM: 14:11 Patient medically screened. ms3 14:17 Differential diagnosis: abnormal EKG, acute myocardial infarction, coronary artery ms3 disease. 16:31 HEART Score: History: Slightly Suspicious (0), ECG: Normal (0), Age: < or = 45 years ms3 (0), Risk Factors: 1 or 2 risk factors (1), Troponin: < or = 1 x Normal Limit (0), Total Score = 1. Data reviewed: vital signs, nurses notes, lab test result(s), EKG, radiologic studies, and as a result, I will discharge patient. Consideration of Admission/Observation Escalation of care including admission/observation considered. Heart score 1. Independent interpretation of the following test(s) in the Emergency Department EKG: See my EKG interpretation above X-Ray: My interpretation is CXR images reviewed by me do not show wide mediastinum, or PNA. Counseling: I had a detailed discussion with the patient and/or guardian regarding the historical points, exam findings, and any diagnostic results supporting the discharge/admit diagnosis, lab results, radiology results, the need for outpatient follow up, to return to the emergency department if symptoms worsen or persist or if there are any questions or concerns that arise at home. Special discussion: Based on the patient's history, exam, and Dx evaluation, there is no indication for emergent intervention or inpatient Tx. It is understood by the patient/guardian that if the Sx's persist or worsen they need to return immediately for re-evaluation. ED course: Discussed labs, EKG, chest x-ray with patient. Patient to follow-up with primary care physician in 2 to 3 days. Patient understands and agrees to plan. All questions were answered. Return precautions discussed include worsening symptoms, or any other concerns. On reevaluation patient symptoms improved, patient alert and orient x4, no apparent distress, nontoxic-appearing, ambulatory in emergency department. 02/06 14:04 Order name: Basic Metabolic Panel; Complete Time: 15:57 ms3 02/06 14:04 Order name: CBC with Diff; Complete Time: 15:57 ms3 02/06 14:04 Order name: LFT's; Complete Time: 15:57 ms3 02/06 14:04 Order name: Magnesium; Complete Time: 15:57 ms3 02/06 14:04 Order name: Troponin HS; Complete Time: 15:57 ms3 02/06 14:04 Order name: D-Dimer; Complete Time: 15:57 ms3 02/06 14:04 Order name: Chest Pa And Lat (2 Views) XRAY; Complete Time: 16:22 ms3 02/06 14:04 Order name: EKG; Complete Time: 14:05 ms3 02/06 14:04 Order name: EKG - Nurse/Tech; Complete Time: 16:11 ms3 02/06 14:04 Order name: IV Saline Lock; Complete Time: 16:11 ms3 02/06 14:04 Order name: Labs collected and sent; Complete Time: 16:11 ms3 02/06 14:04 Order name: O2 Per Protocol; Complete Time: 16:11 ms3 02/06 14:04 Order name: O2 Sat Monitoring; Complete Time: 16:11 ms3 EC:41 Rate is 72 beats/min. Rhythm is regular. QRS [place] is Normal. MO interval is normal. QRS ms3 interval is normal. Clinical impression: NSR w/ Non-specific ST/T Changes. Interpreted by me. Reviewed by me. Administered Medications: 16:10 Drug: Ketorolac IVP 10 mg 10 mg IVP once Route: IVP; Site: right antecubital; iw 16:39 Follow up: Response: No adverse reaction; Pain is decreased me1 16:10 Drug: Ondansetron IVP 4 mg IVP once; over 2 minutes Route: IVP; Site: right antecubital;iw 16:39 Follow up: Response: No adverse reaction me1 Disposition: 21:30 Chart complete. ms3 Disposition Summary: 02/06/23 16:31 Discharge Ordered Notes: Location: Home ms3 Condition: Stable ms3 Diagnosis - Chest pain, unspecified ms3 Followup: ms3 - With: Tony Trujillo MD - When: 2 - 3 days - Reason: Recheck today's complaints Discharge Instructions: - Discharge Summary Sheet ms3 - Nonspecific Chest Pain, Adult ms3 Forms: - Work release form iw - Medication Reconciliation Form ms3 - Thank You Letter ms3 - Antibiotic Education ms3 - Prescription Opioid Use ms3 - Patient Portal Instructions ms3 - Leadership Thank You Letter ms3 Prescriptions: - ondansetron 4 mg Oral Tablet,disintegrating - take 1 tablet ORAL route every 8 hours; 15 tablet; Refills: 0, Product ms3 Selection Permitted Signatures: Dispatcher [employer] Anna Fabian RN RN iw Royce Miller DO DO ms3 Funmilayo Mcgovern RN RN kd3 Kristen Anaya RN me1 Corrections: (The following items were deleted from the chart) 13:33 13:33 Home Meds: metoprolol tartrate 50 mg Oral tab once daily; kd3 kd3
--- NOTE | 2023-02-06 16:31 | ER ---
Nurse's Notes [facility] Name: Leatha Jorge Age: 37 yrs Sex: Female : 1985 Arrival Date: 02/06/2023 Time: 13:21 Bed 12 Private MD: Diagnosis: Chest pain, unspecified Presentation: 02/06 13:33 Coronavirus screen: Vaccine status: Patient reports being unvaccinated. Ebola Screen: kd3 No symptoms or risks identified at this time. Initial Sepsis Screen: Does the patient meet any 2 criteria? No. Patient's initial sepsis screen is negative. Does the patient have a suspected source of infection? No. Patient's initial sepsis screen is negative. Risk Assessment: Do you want to hurt yourself or someone else? Patient reports no desire to harm self or others. Onset of symptoms was February 06, 2023. 13:33 Method Of Arrival: Ambulatory kd3 13:33 Acuity: CELESTE 3 kd3 13:36 Chief complaint: Patient states: I am having chest pain that feels like it is ripping me1 and tearing into my back. I am having nausea and my left arm is hurting. It just started suddenly today. Triage Assessment: 13:33 General: Appears uncomfortable, Behavior is calm, cooperative. Pain: Complains of pain kd3 in chest. Cardiovascular: Patient's skin is warm and dry. Historical: - Allergies: 13:33 No Known Allergies; kd3 - Home Meds: 13:34 carvedilol oral [Active]; Hydrochlorothiazide Oral [Active]; amlodipine oral [Active]; kd3 topiramate oral [Active]; - PMHx: 13:33 Hypertensive disorder; kd3 - PSHx: 13:33 section; kd3 - Immunization history:: Adult Immunizations up to date. - Social history:: Smoking status: Patient denies any tobacco usage or history of. Screenin:00 [facility] ED Fall Risk Assessment (Adult) Score/Fall Risk Level 0 - 2 = Low Risk. Abuse iw screen: Denies threats or abuse. Denies injuries from another. Nutritional screening: No deficits noted. Tuberculosis screening: No symptoms or risk factors identified. Assessment: 15:59 General: Appears in no apparent distress. Behavior is calm, cooperative. Pain: iw Complains of pain in chest Pain does not radiate. Pain began. Neuro: Level of Consciousness is awake, alert, obeys commands, Oriented to person, place, time, situation, Moves all extremities. Full function. Cardiovascular: Patient's skin is warm and dry. Respiratory: Respiratory effort is even, unlabored. GI: Abdomen is non-distended. 17:00 Reassessment: Patient appears in no apparent distress at this time. Patient and/or iw family updated on plan of care and expected duration. Pain level reassessed. Patient is alert, oriented x 3, equal unlabored respirations, skin warm/dry/pink. Patient states feeling better. Patient states symptoms have improved. Vital Signs: 13:32 BP 133 / 100; Pulse 78; Resp 19; Temp 98.4(TE); Pulse Ox 100% ; Weight 92.08 kg; Height kd3 5 ft. 10 in. ; 13:37 BP 134 / 96 RA; kd3 13:37 BP 134 / 93 LA; kd3 13:32 Body Mass Index 29.13 (92.08 kg, 177.8 cm) kd3 ED Course: 13:24 Patient arrived in ED. mr 13:33 Triage completed. kd3 13:33 Arm band placed on right wrist. kd3 13:40 EKG completed in triage. Results shown to MD. kd3 13:47 Royce Miller DO is Attending Physician. ms3 15:00 Chest Pa And Lat (2 Views) XRAY In Process Unspecified. EDMS 15:59 Anna Pacheco, RN is Primary Nurse. iw 15:59 Patient has correct armband on for positive identification. Provided Education on: . iw Client placed on continuous cardiac and pulse oximetry monitoring. NIBP monitoring applied. 16:31 Tony Trujillo MD is Referral Physician. ms3 17:00 No provider procedures requiring assistance completed. IV discontinued, intact, iw bleeding controlled, No redness/swelling at site. Pressure dressing applied. Patient maintains SpO2 saturation greater than 95% on room air. Administered Medications: 16:10 Drug: Ketorolac IVP 10 mg 10 mg IVP once Route: IVP; Site: right antecubital; iw 16:39 Follow up: Response: No adverse reaction; Pain is decreased me1 16:10 Drug: Ondansetron IVP 4 mg IVP once; over 2 minutes Route: IVP; Site: right antecubital;iw 16:39 Follow up: Response: No adverse reaction me1 Medication: 16:00 VIS not applicable for this client. iw Outcome: 16:31 Discharge ordered by . ms3 17:00 Discharged to home ambulatory, iw 17:00 Condition: good 17:00 Discharge instructions given to patient, Instructed on discharge instructions, follow up and referral plans. medication usage, Demonstrated understanding of instructions, follow-up care, medications, Prescriptions given X 1, 17:01 Patient left the ED. iw Signatures: Dispatcher [employer] EDMS Monserrat Bermudez, Reg Reg mr Anna Pacheco, RN RN iw Royce Miller DO DO ms3 Funmilayo Mcgovern RN RN kd3 Kristen Anaya, PATTI RN me1 Corrections: (The following items were deleted from the chart) 13:33 13:33 Home Meds: metoprolol tartrate 50 mg Oral tab once daily; kd3 kd3 16:39 13:36 Chief complaint: Patient states: I am having chest pain that feels like it is me1 ripping and tearing into my back. I am having nausea and my left arm is hurting. It just started suddenly today. kd3
[2023-02-06 17:06] VITALS: TEMP 98.4; O2SAT 100
[2023-02-06 17:08] VITALS: BP 134/93
--- NOTE | 2023-02-08 14:14 | EKG ---
Test Date: 2023-02-06 Test Time: 13:30:37 Clinical Nursing Coordinator: JAY MEASUREMENT RESULTS: Intervals: Rate: 72 WY: 166 QRSD: 80 QT: 376 QTc: 411 [place]: P: 14 W[place]: 166 QRS: 50 T: 42 INTERPRETIVE STATEMENTS: Normal sinus rhythm Septal infarct, age undetermined Abnormal ECG Compared to ECG 04/29/2021 22:25:00 No significant changes Electronically Signed On 02-08-23 14:08:28 MENAGERIE SUPERINTENDENT by Tony Trujillo
== END 2023-02-06 17:01 | disposition home or self-care (01) ==
LOC: ER 13:21
DX: R07.9 Chest pain, unspecified (principal); I10 Essential (primary) hypertension
CPT/HCPCS: 93005; 85025; 80048; 36415; 83735; 85379; 80076; 84484; 71046; 96375; 96374; 99285; J2405